=== PATIENT | male | born 1995 | race African-American/Black ===

== ENCOUNTER 2018-03-30 14:12 | Emergency (ER) | payer MEDICAID ==
[~2018-03-30] VITALS: Ht 175.3 cm; Wt 68.0 kg
[~2018-03-30 14:12] MED LIST: MUCINEX
[2018-03-30] MEDS ORDERED: IBUPROFEN 800MG TABLET PO ONE (19:45)
[2018-03-30 21:00] VITALS: BP 155/99
== END 2018-03-30 21:03 | disposition home or self-care (01) ==
LOC: ER 14:12
DX: S10.93XA Contusion of unspecified part of neck, initial encounter (principal); S30.0XXA Contusion of lower back and pelvis, initial encounter; S40.012A Contusion of left shoulder, initial encounter; V49.9XXA Car occupant (driver) (passenger) injured in unspecified traffic accident, initial encounter; Y93.89 Activity, other specified; Y92.410 Unspecified street and highway as the place of occurrence of the external cause; Z87.891 Personal history of nicotine dependence
CPT/HCPCS: 73030; 99283